=== PATIENT | female | born 1990 | race Caucasian/White ===

== ENCOUNTER 2016-11-06 07:55 | Inpatient (IN) | payer SELFPAY ==
[~2016-11-06] VITALS: Ht 152.4 cm; Wt 60.8 kg
[2016-11-06 08:32] LABS: BASOPHIL % 0.2 % (0-2); PLATELET COUNT 281 x10^3mcL (130-400); RED CELL DISTRIBUTION WIDTH 13.7 % (11.5-14.5)
[2016-11-06 08:39] LABS: CALCIUM 8.8 mg/dL (8.5-10.1); CARBON DIOXIDE 28.5 mmol/L (21-32); CHLORIDE SERUM 102 mmol/L (98-107); CREATININE SERUM 0.9 mg/dL (0.6-1.0); GFR1 > 60 mL/min; GLUCOSE SERUM 113 mg/dL (74-106); SODIUM SERUM 141 mmol/L (136-145)
[2016-11-06 08:45] LABS: ALBUMIN 3.8 g/dL (3.4-5.0); ALKALINE PHOSPHATASE 55 U/L (46-116); ALT/SGPT 27 U/L (14-59); AST/SGOT 15 U/L (15-37); BILIRUBIN TOTAL 1.3 mg/dL (0.20-1.00); LIPASE 122 IU/L (73-393); TOTAL PROTEIN, SERUM 7.9 g/dL (6.4-8.2)
[2016-11-06 12:27] LABS: CHOLESTEROL/HDL RATIO 1.9; PHOSPHOROUS 3.5 mg/dL (2.5-4.9)
[2016-11-06 12:34] LABS: FREE T4 1.06 ng/dL (0.76-1.46); FREE THYROXINE INDEX 3.2 ug/dL (1.4-4.5); T4(THYROXINE) 8.8 ug/dL (4.7-13.3)
[2016-11-06 12:35] LABS: T3 TOTAL 1.15 ng/mL
[2016-11-06 13:01] VITALS: Ht 152.4 cm; Wt 60.8 kg
[2016-11-06 13:05] VITALS: BP 108/80
[2016-11-06 16:40] VITALS: BP 98/62
[2016-11-06 20:45] VITALS: BP 109/76
[2016-11-07 06:01] VITALS: BP 93/63
[2016-11-07 06:17] LABS: BASOPHIL % 0.4 % (0-2); PLATELET COUNT 200 x10^3mcL (130-400); RED CELL DISTRIBUTION WIDTH 13.6 % (11.5-14.5)
[2016-11-07 06:29] LABS: CALCIUM 7.9 mg/dL (8.5-10.1); CHLORIDE SERUM 106 mmol/L (98-107); CREATININE SERUM 0.8 mg/dL (0.6-1.0); GFR1 > 60 mL/min; GLUCOSE SERUM 92 mg/dL (74-106); MAGNESIUM 1.9 mg/dL (1.8-2.4); PHOSPHOROUS 3.6 mg/dL (2.5-4.9); POTASSIUM SERUM 4.3 mmol/L (3.5-5.1); SODIUM SERUM 140 mmol/L (136-145)
[2016-11-07 14:30] VITALS: BP 118/80
[2016-11-07 17:55] VITALS: BP 103/66
[2016-11-07 21:40] VITALS: BP 111/79
[2016-11-08 05:39] VITALS: BP 112/75
[2016-11-08 05:58] LABS: BASOPHIL % 0.4 % (0-2); PLATELET COUNT 251 x10^3mcL (130-400); RED CELL DISTRIBUTION WIDTH 13.6 % (11.5-14.5)
[2016-11-08 06:20] LABS: ALBUMIN 2.9 g/dL (3.4-5.0); ALKALINE PHOSPHATASE 44 U/L (46-116); ALT/SGPT 40 U/L (14-59); AST/SGOT 56 U/L (15-37); BILIRUBIN TOTAL 0.91 mg/dL (0.20-1.00); CALCIUM 8.3 mg/dL (8.5-10.1); CARBON DIOXIDE 27.9 mmol/L (21-32); CHLORIDE SERUM 103 mmol/L (98-107); CREATININE SERUM 0.8 mg/dL (0.6-1.0); GFR1 > 60 mL/min; GLUCOSE SERUM 113 mg/dL (74-106); POTASSIUM SERUM 3.6 mmol/L (3.5-5.1); SODIUM SERUM 138 mmol/L (136-145); TOTAL PROTEIN, SERUM 6.7 g/dL (6.4-8.2)
[2016-11-08 09:24] VITALS: BP 107/72
[2016-11-08] MEDS ORDERED: NOR10T PO (12:27)
[2016-11-08] MEDS ORDERED: COLACE100 MG PO (12:28)
[2016-11-08] MEDS ORDERED: MOT600 PO (12:45)
[2016-11-08 13:37] VITALS: BP 107/72
== END 2016-11-08 15:26 | disposition home or self-care (01) | DRG 417 ==
LOC: ED 07:55 → DU 11:07
PROVIDERS: Emergency Medicine; Surgery; ADMIT Family Medicine
PROC: 0FT44ZZ Resection of Gallbladder, Percutaneous Endoscopic Approach (ICD-10-PCS; principal; 2016-11-07 08:30)
DX: K80.00 Calculus of gallbladder with acute cholecystitis without obstruction (principal); N17.0 Acute kidney failure with tubular necrosis; Z83.3 Family history of diabetes mellitus; E78.00 Pure hypercholesterolemia, unspecified; E83.51 Hypocalcemia; D64.9 Anemia, unspecified; E66.3 Overweight; Z68.26 Body mass index [BMI] 26.0-26.9, adult
CPT/HCPCS: 84439; 94150; J0330; J0694; J0696; J1170; J1885; J2175; J2250; J2405; J2550; J2704; J3010; J3490; J7030; J7120; Q0092